=== PATIENT | male | born 1955 | race Caucasian/White ===

== ENCOUNTER 2019-11-11 17:42 | Emergency (ER) | payer MEDICAID ==
[~2019-11-11] VITALS: Ht 172.7 cm; Wt 54.5 kg
[2019-11-11 17:48] VITALS: BP 109/70
--- NOTE | 2019-11-11 19:00 | NUR ---
CHEST X RAY COMPLETED IN [facility]
[2019-11-11] MEDS ORDERED: ACET-2119 PO (19:21)
== END 2019-11-11 22:10 | disposition home or self-care (01) ==
LOC: ER 17:42
DX: B34.9 Viral infection, unspecified (principal); Z20.828 Contact with and (suspected) exposure to other viral communicable diseases; R11.2 Nausea with vomiting, unspecified; R05 Cough; Z88.1 Allergy status to other antibiotic agents; R19.7 Diarrhea, unspecified; Z79.899 Other long term (current) drug therapy
CPT/HCPCS: 71045; 99284